=== PATIENT | female | born 1975 | race Hispanic/Latino ===

== ENCOUNTER 2017-09-07 18:49 | Emergency (ER) | payer SELFPAY ==
[2017-09-07 19:07] VITALS: BP 119/91; TEMP 97.2; O2SAT 97
--- NOTE | 2017-09-07 19:32 | ED.PDOC ---
History of Present Illness - General Chief Complaint: Behavioral / Psych Stated Complaint: nervous,anxious,grief Time Seen by Provider: 09/07/17 19:25 Exam Limitations: no limitations - History of Present Illness Initial Comments: Margaret Palacios 42 y/o female brought by family with crying all day after her son dianna away from MVA w/c happeneed today. Timing/Duration: 4-6 hours Severity: moderate Improving Factors: nothing Worsening Factors: nothing Associated Symptoms: denies symptoms Allergies/Adverse Reactions: Allergies NO KNOWN ALLERGY Allergy (Unverified 05/10/14 14:44) Home Medications: Ambulatory Orders NK [NK] 09/07/17 Review of Systems - Review of Systems Constitutional: States: no symptoms reported EENTM: States: no symptoms reported Respiratory: States: no symptoms reported Cardiology: States: no symptoms reported Gastrointestinal/Abdominal: States: no symptoms reported Neurological: States: see HPI, depressed All other Systems: Reviewed and Negative, No Change from Baseline Past Medical History (General) - Patient Medical History Hx Stroke: No Hx Asthma: No Hx Congestive Heart Failure: No Hx Hypertension: No Hx Diabetes: No Surgical History: no surgical history - Vaccination History Hx Influenza Vaccination: No Hx Pneumococcal Vaccination: No - Social History Hx Tobacco Use: No Hx Alcohol Use: No Hx Substance Use: No Hx Substance Use Treatment: No Hx Physical Abuse: No Hx Emotional Abuse: No Hx Suspected Abuse: No - Female History Patient is a Female of Child Bearing Age (10 -59 yrs old): Yes Family Medical History - Family History Mother Family History: Unknown Physical Exam - Physical Exam General Appearance: No apparent distress, Other - crying Eye Exam: bilateral normal Ears, Nose, Throat: hearing grossly normal Neck: non-tender, full range of motion, supple Respiratory: lungs clear, normal breath sounds Cardiovascular/Chest: normal peripheral pulses, regular rate, rhythm, no murmur Gastrointestinal/Abdominal: normal bowel sounds, non tender, soft Extremity: no pedal edema, no calf tenderness Neurologic: oriented x 3, depressed affect Skin Exam: normal color, warm/dry Progress - Progress Progress: 09/07/17 19:33 Vital Signs - 8 hr 09/07/17 09/07/17 18:55 19:07 Temperature 97.2 F L 97.2 F L Pulse Rate [ 112 H 112 H Right Arm] Respiratory 20 16 Rate Blood Pressure 119/91 119/91 [Right Arm] O2 Sat by Pulse 97 97 Oximetry Departure - Departure Clinical Impression: Grief at loss of child Time of Disposition: 19:33 Disposition: Discharge to Home or Self Care Condition: Good Departure Forms: ED Discharge - Pt. Copy, Patient Portal Self Enrollment Home Medications: Ambulatory Orders NK [NK] 09/07/17
== END 2017-09-07 19:45 | disposition home or self-care (01) ==
LOC: ER 18:49
DX: F43.29 Adjustment disorder with other symptoms (principal); Z63.4 Disappearance and death of family member

== ENCOUNTER → 2018-05-29 | Outpatient (CLI) | payer OTHER ==
--- NOTE | 2018-05-29 12:19 | CT ---
EXAM DESCRIPTION: Abdoment/Pelvis w/o Contrast CLINICAL HISTORY: 43 years Female, R10.9 COMPARISON: None. TECHNIQUE: CT of the abdomen and pelvis was acquired without IV contrast material. Coronal and sagittal reformations were provided. This exam was performed according to our departmental dose-optimization program, which includes automated exposure control, adjustment of the mA and/or kV according to patient size and/or use of iterative reconstruction technique. CT ABDOMEN FINDINGS: Lung bases: 2 mm groundglass nodule in the right middle lobe on image 6. There is limited evaluation of the solid organs secondary to the lack of intravenous contrast. Liver: There is diffuse hypoattenuation of the liver parenchyma. Gallbladder and biliary: The gallbladder is surgically absent. No biliary ductal dilatation. Pancreas: Normal. Spleen: Normal. Kidneys and adrenal glands: There is enlargement and severe hydronephroureter on the left. Multiple large calculi fill the renal pelvis and calyces, which measures up to 1.9 cm at the ureter pelvic junction. Additionally, there is a 1.9 cm left distal ureteral calculi with severe hydroureter as well. There is moderate perinephric stranding on the left. There is an indeterminate 1.1 cm right adrenal nodule with average Hounsfield unit of 31. Right kidney is unremarkable without hydronephroureter. Left adrenal gland is normal. GI tract: Stomach is unremarkable. No small bowel obstruction. Peritoneal cavity: No ascites or free air. Retroperitoneum and lymph nodes: Normal. Vascular: Normal. Musculoskeletal and soft tissues: No acute fracture or aggressive appearing osseous lesion. Soft tissues are unremarkable. CT PELVIS FINDINGS: GI tract: The colon and appendix are normal. Urinary bladder: Normal. Uterus and adnexa: Uterus is unremarkable. Bilateral cystic structures measuring up to 2.5 cm in the right adnexa and 2.8 cm the left adnexa likely represent simple ovarian cysts. IMPRESSION: 1. Obstructing calculi within the left kidney and distal left ureter as above resulting in severe left hydronephroureter. There is enlargement of the left kidney with moderate surrounding perinephric stranding present. If not already performed, urology consult is recommended. 2. Hepatic steatosis. 3. Cholecystectomy. 4. Multiple ovarian cysts: 2.5 cm probably benign ovarian cyst; 2.8 cm probably benign ovarian cyst. Most severe: 2.8 cm probably benign ovarian cyst No follow-up imaging is recommended. Reference: J Am Tala Radiol 2013;10:675-681 5. 2 mm groundglass nodule in the right middle lobe. No further follow-up recommended per the guidelines below. Single GG lung nodule < 6 mm: No routine follow-up imaging is recommended. These guidelines do not apply to patients younger than 35 years, immunocompromised patients, and patients with cancer. F/u in patients with significant comorbidities as clinically warranted. For lung cancer screening, adhere to Lung-RADS guidelines. Reference: Radiology. 2017 [place]; 284(1):228-24 Electronically signed by: Rui Perez MD 05/29/2018 12:18 PM [facility]
== END ==
LOC: CT 09:44
PROVIDERS: ATTEND Nurse Practitioner Family
DX: N20.2 Calculus of kidney with calculus of ureter (principal); N83.201 Unspecified ovarian cyst, right side; N83.202 Unspecified ovarian cyst, left side; R91.1 Solitary pulmonary nodule; K76.0 Fatty (change of) liver, not elsewhere classified; Z90.49 Acquired absence of other specified parts of digestive tract